=== PATIENT | female | born 1975 | race Caucasian/White ===

== ENCOUNTER 2021-01-16 10:04 | Emergency (ER) | payer OTHER ==
[~2021-01-16 10:04] MED LIST: 1; PERCOCET 5-3251 EACH PO
[2021-01-16 10:44] LABS: BILIRUBIN NEGATIVE (NEGATIVE); BLOOD 3+ Ery/uL (NEGATIVE); CLARITY CLEAR (CLEAR); COLOR YELLOW (YELLOW); GLUCOSE (U) NORMAL (NORMAL); LEUKOCYTES NEGATIVE Leu/uL (NEGATIVE); NITRITE NEGATIVE (NEGATIVE); PROTEIN TRACE (LOW) mg/dL (NEGATIVE); SPECIFIC GRAVITY >=1.030 (1.001-1.030); UROBILINOGEN 0.2 mg/dL (0.2-1.0)
[2021-01-16 10:49] LABS: BACTERIA TRACE; URINARY RBC 20-50; URINARY WBC RARE
[2021-01-16 11:08] LABS: EOSINOPHIL 2.4 % (0-5); HCT 38.9 % (37.0-47.0); LYMPHOCYTE 17.6 % (15-48); MCH 28.1 pg (25.0-31.0); MCHC 33.4 g/dL (32.0-36.0); MCV 84.2 fL (78.0-100.0); MONOCYTE 6.5 % (0-12); MPV 9.1 fL (6.0-9.5); NEUTROPHIL 71.8 % (41-80); NRBC 0; PLT 389 K/uL (150-400); RBC 4.62 M/uL (4.20-5.40); RDW 13.3 % (11.5-14.0); WBC 13.7 K/uL (4.0-10.5)
[2021-01-16 11:16] LABS: ALBUMIN 3.7 g/dL (3.4-5.0); BILIRUBIN - TOTAL 0.2 mg/dL (0.2-1.0); BUN/CREAT RATIO (CALC) 15.9 RATIO; CREATININE 0.69 mg/dL (0.51-0.95); GLOBULIN (CALCULATION) 3.7 g/dL; POTASSIUM 4.4 mmol/L (3.5-5.1); TOTAL PROTEIN 7.4 g/dL (6.4-8.2)
[2021-02-20] MEDS ORDERED: ZYRTEC10 MG PO (14:14)
[2021-02-20] MEDS ORDERED: IMITREX50 MG PO (14:14)
== END 2021-01-16 17:56 | disposition home or self-care (01) ==
LOC: FER 10:04
PROVIDERS: Emergency Medicine
DX: R10.2 Pelvic and perineal pain (principal); N93.9 Abnormal uterine and vaginal bleeding, unspecified; Z98.890 Other specified postprocedural states
CPT/HCPCS: 36415; 76830; 80053; 81001; 85025; J1885; Q9967

== ENCOUNTER 2021-01-26 22:28 | Emergency (ER) | payer OTHER ==
[2021-02-20] MEDS ORDERED: ZYRTEC10 MG PO (14:14)
[2021-02-20] MEDS ORDERED: IMITREX50 MG PO (14:14)
== END 2021-01-27 01:01 | disposition home or self-care (01) ==
LOC: FER 22:28
DX: S61.213A Laceration without foreign body of left middle finger without damage to nail, initial encounter (principal); W26.0XXA Contact with knife, initial encounter; Y93.G1 Activity, food preparation and clean up

== ENCOUNTER 2021-02-26 07:04 | Day surgery (SDCO) | payer OTHER ==
[~2021-02-26] VITALS: Ht 162.6 cm; Wt 78.0 kg
[~2021-02-26 07:04] MED LIST changes: +IMITREX50 MG PO; +ZYRTEC10 MG PO
[2021-02-26 07:58] LABS: HCG (URINE) SCREEN NEGATIVE (NEGATIVE)
[2021-02-26 07:58] LABS: HCT 35.3 % (37.0-47.0); HGB 11.4 g/dl (12.5-16.0); MCH 26.9 pg (25.0-31.0); MCHC 32.3 g/dL (32.0-36.0); MCV 83.3 fL (78.0-100.0); MPV 8.9 fL (6.0-9.5); RBC 4.24 M/uL (4.20-5.40); RDW 13.1 % (11.5-14.0); WBC 9.3 K/uL (4.0-10.5)
[2021-02-26] MEDS ORDERED: COLACE100 MG PO (10:23)
[2021-02-26] MEDS ORDERED: ZOFRAN4 M1 PO (10:23)
[2021-02-26] MEDS ORDERED: PERCOCET 5-3251 EACH PO (10:23)
[2021-02-26] MEDS ORDERED: IBUPROFEN800 M1 PO (10:23)
== END 2021-02-26 12:00 | disposition home or self-care (01) ==
LOC: FSDC 07:04 → FMS 08:00 → FSDC 12:00
PROVIDERS: ADMIT Obstetrics & Gynecology
DX: D25.9 Leiomyoma of uterus, unspecified (principal); N80.0 Endometriosis of uterus; N84.0 Polyp of corpus uteri; G47.30 Sleep apnea, unspecified; G43.909 Migraine, unspecified, not intractable, without status migrainosus; K21.9 Gastro-esophageal reflux disease without esophagitis; Z99.89 Dependence on other enabling machines and devices; Z87.891 Personal history of nicotine dependence
CPT/HCPCS: 36415; 84703; 86850; 86900; 86901; 93005; G0378; J0690; J1100; J1170; J1885; J2250; J2405; J2704; J3010; J7120